=== PATIENT | female | born 1975 | race Caucasian/White ===

== ENCOUNTER 2023-07-16 01:04 | Inpatient (IN) | payer OTHER, SELFPAY ==
[2023-07-15 17:57] VITALS: BP 168/107
[2023-07-15 18:21] LABS: % Basophils 0.6 % (0-2); % Eosinophils 0.9 % (0-6); % Immature Granulocytes 0.2 % (0-0.5); % Lymphocytes 17.7 % (20.5-51.1); % Monocytes 10.9 % (1.7-9.3); % Neutrophils 69.7 % (42.2-75.2); Absolute Basophils 0.1 10^3/uL (0-0.2); Absolute Eosinophils 0.1 10^3/uL (0-0.7); Absolute Lymphocytes 2.1 10^3/uL (1.2-3.4); Absolute Monocytes 1.3 10^3/uL (0.1-0.6); Absolute Neutrophils 8.3 10^3/uL (1.4-6.5); Hemoglobin 13.2 g/dL (12.0-16.0); Mean Corp Hgb Conc. 34.7 g/dL (33.0-37.0); Mean Corpuscular Hgb 30.7 pg (27.0-31.0); Mean Corpuscular Volume 88.4 fL (81.0-99.0); Mean Platelet Volume 10.3 fL (7.4-10.4); Nucleated Red Blood Cells % 0 %; Platelet Count 353 10^3/uL (130-400); Red Cell Dist. Width 12.8 % (11.5-14.5)
[2023-07-15 18:47] LABS: ALT (SGPT) 13 U/L (0-35); AST (SGOT) 22 U/L (14-36); Albumin 4.2 g/dl (3.5-5.0); Alkaline Phosphatase 86 U/L (38-126); Blood Urea Nitrogen 13 mg/dl (7-17); Calcium 9.8 mg/dl (8.4-10.2); Carbon Dioxide 26 mmol/L (22-30); Chloride 102 mmol/L (98-107); Glucose 110 mg/dl (70-99); Potassium 4.1 mmol/L (3.5-5.1); Sodium 137 mmol/L (135-145); Total Bilirubin 0.5 mg/dl (0.2-1.3); eGFR > 60.00
[2023-07-15 18:49] LABS: HCG, Serum Qualitative Screen Negative
[2023-07-15 18:58] LABS: Troponin I < 0.012 ng/ml
[2023-07-15 19:02] LABS: Lipase 139 U/L (23-300)
--- NOTE | 2023-07-15 21:49 | ED.GENMED ---
History of Present Illness
<Nilam Carson PA-C - Last Filed: 07/16/23 00:41>
General
Chief Complaint: Abdominal Pain
Source: patient
Exam Limitations: none
Time Seen by Provider: 07/15/23 21:05
Nursing documentation reviewed up to this point in time: agreed with
Travel History
Have you had any contact with someone who has COVID-19?: No
Do you have any symptoms of coronavirus? Fever > 100 degrees, chills, cough, shortness of breath, sore throat, loss of taste or smell, muscle aches, or headache?: No
History of Present Illness
History of Present Illness:
Patient is a 48 year old female with hx HTN presenting for evaluation of left lower chest pain with radiation to left scapula and arm. Symptoms started on Tuesday evening and have been constant since. Pain is both exertional and pleuritic in nature.
Patient reports difficulty taking a deep breath. She does endorse some worsening in pain with movement. She states pain is better when lying flat. She denies any fever, shortness of breath, cough, abdominal pain, nausea, or urinary symptoms.
She has been taking ibuprofen for the pain which does lead to some improvement.
She denies any recent travel or recent surgery.
Past History
<Nilam Carson PA-C - Last Filed: 07/16/23 00:41>
Past History
ED Past Medical History: HTN, Other (Gastritis) and Other (Ovarian cyst)
ED Past Surgical History: and Other (Rhinoplasty)
Social History
Tobacco: Former smoker
Alcohol: Occasional
Personal:
Living: with family
Employment: Employed
Family History
Family History: Other (Noncontributory)
Phy Exam
<Nilam Carson PA-C - Last Filed: 07/16/23 00:41>
Physical Exam
Physical Exam:
General: Well appearing and non-toxic
Vitals: Mildly tachycardic, hypertensive, afebrile
HEENT: Atraumatic, normocephalic; pupils equal round reactive to light bilaterally, extraocular's intact, protecting airway
Neck: appears supple, no JVD
CV: Mildly tachycardic, heart sounds normal, no evidence of cyanosis; anterior chest wall without any reproducible pain
Resp: No evidence of respiratory distress, lungs clear no accessory muscle use
Abd: Soft, nontender, non-distended
Extremities: No deformities, no evidence of cyanosis or edema; DP pulses palpable and equal
Neuro: alert and oriented, speech normal, no focal neurologic deficits
Psych: Normal affect
Skin: Intact, no rashes
Course
<Nilam Carson PA-C - Last Filed: 07/16/23 00:41>
Orders/Labs/Results
Orders:
Orders
07/15/23 18:00
EKG [Electrocardiogram (*1)] Urgent
Reason for Study: Chest Pain
EKG- Treatment ONCE
Test Result ONCE
07/15/23 18:06
Complete Blood Count/With Diff Urgent
Comprehensive Metabolic Panel Urgent
HCG, Serum Qualitative Screen Urgent
Lipase Urgent
Troponin I Urgent
07/15/23 22:12
D-Dimer Urgent
07/15/23 22:29
Ibuprofen [Motrin] 400 mg PO NOW STA
07/15/23 22:36
CT Chest Pe Study Urgent
Comment:
Reason For Exam: pleuritic chest pain, elevated dimer
07/16/23 00:44
Admit/Transfer Patient As Directed
Co-Sign Provider:
Level of Care: Inpatient admission
Assign to:: Telemetry
Physician / Group: Gabriel
Diagnosis: Pericarditis
Reason for Telemetry: Chest Pain syndromes
Date to Stop Telemetry: 07/18/23
Time to Stop Telemetry: 11:00
Reason for Hospitalization: Pericarditis
Expected length of stay greater than two midnights?: Yes
ELOS- Estimated Length of Stay in days: 2
I certify the patient meets the requirements for IP care: Yes
07/16/23 00:45
Code Status As Directed
Resuscitation Status: Full Code
07/18/23 11:00
DC Protocol for Telemetry ONCE
Abnormal Lab Results
07/15/23 07/15/23
18:06 22:12
WBC 12.0 H 10^3/uL
(4.8-10.8)
Absolute Neuts (auto) 8.3 H 10^3/uL
(1.4-6.5)
Absolute Monos (auto) 1.3 H 10^3/uL
(0.1-0.6)
Lymphocytes % 17.7 L %
(20.5-51.1)
Monocytes % 10.9 H %
(1.7-9.3)
D-Dimer 1.12 H ug/mlFEU
(0.00-0.50)
Glucose 110 H mg/dl
(70-99)
07/15/23 18:06
07/15/23 18:06
Vital Signs
Initial and Last Documented VS:
Initial Vital Signs
Temp Pulse Resp BP Pulse Ox
98.8 F 101 18 168/107 98
07/15/23 17:57 07/15/23 17:57 07/15/23 17:57 07/15/23 17:57 07/15/23 17:57
Last Documented Vital Signs
Temp Pulse Resp BP Pulse Ox
98.8 F 93 21 131/92 98
07/15/23 17:57 07/16/23 00:34 07/16/23 00:34 07/16/23 00:00 07/16/23 00:34
<All Quintero, DO - Last Filed: 07/16/23 02:16>
Orders/Labs/Results
Orders:
Orders
07/15/23 18:00
EKG [Electrocardiogram (*1)] Urgent
Reason for Study: Chest Pain
EKG- Treatment ONCE
Test Result ONCE
07/15/23 18:06
Complete Blood Count/With Diff Urgent
Comprehensive Metabolic Panel Urgent
HCG, Serum Qualitative Screen Urgent
Lipase Urgent
Troponin I Urgent
07/15/23 22:12
D-Dimer Urgent
07/15/23 22:29
Ibuprofen [Motrin] 400 mg PO NOW STA
07/15/23 22:36
CT Chest Pe Study Urgent
Comment:
Reason For Exam: pleuritic chest pain, elevated dimer
07/16/23 00:44
Admit/Transfer Patient As Directed
Co-Sign Provider:
Level of Care: Inpatient admission
Assign to:: Telemetry
Physician / Group: Gabriel
Diagnosis: Pericarditis
Reason for Telemetry: Chest Pain syndromes
Date to Stop Telemetry: 07/18/23
Time to Stop Telemetry: 11:00
Reason for Hospitalization: Pericarditis
Expected length of stay greater than two midnights?: Yes
ELOS- Estimated Length of Stay in days: 2
I certify the patient meets the requirements for IP care: Yes
07/16/23 00:45
Code Status As Directed
Resuscitation Status: Full Code
07/18/23 11:00
DC Protocol for Telemetry ONCE
Abnormal Lab Results
07/15/23 07/15/23
18:06 22:12
WBC 12.0 H 10^3/uL
(4.8-10.8)
Absolute Neuts (auto) 8.3 H 10^3/uL
(1.4-6.5)
Absolute Monos (auto) 1.3 H 10^3/uL
(0.1-0.6)
Lymphocytes % 17.7 L %
(20.5-51.1)
Monocytes % 10.9 H %
(1.7-9.3)
D-Dimer 1.12 H ug/mlFEU
(0.00-0.50)
Glucose 110 H mg/dl
(70-99)
07/15/23 18:06
07/15/23 18:06
Vital Signs
Initial and Last Documented VS:
Initial Vital Signs
Temp Pulse Resp BP Pulse Ox
98.8 F 101 18 168/107 98
07/15/23 17:57 07/15/23 17:57 07/15/23 17:57 07/15/23 17:57 07/15/23 17:57
Last Documented Vital Signs
Temp Pulse Resp BP Pulse Ox
98.8 F 93 21 131/92 98
07/15/23 17:57 07/16/23 00:34 07/16/23 00:34 07/16/23 00:00 07/16/23 00:34
<Nilam Carson PA-C - Last Filed: 07/16/23 00:41>
MDM/Problems Addressed
Differential Diagnosis Includes:
Muscular strain, pneumonia, PE,
MDM/Problems Addressed:
Patient is 48-year-old female with history hypertension presenting for evaluation of left lower chest wall pain with radiation to left shoulder for the past 4 days. Symptoms are constant, made worse with movement, deep breaths, exertion. No
associated shortness of breath, fevers, nausea, vomiting. No recent travel or recent surgeries. Hemodynamically stable on arrival�mildly tachycardic and hypertensive. She is afebrile, not hypoxic. Physical exam as documented above. Heart rate
mildly tachycardic, lungs clear. Both chest pain and left scapular pain not reproducible on exam no signs of DVT on exam. Basic labs and EKG obtained in triage. CBC shows mild leukocytosis of 12 otherwise no clinically significant abnormalities.
CMP without any clinically significant abnormalities. Troponin negative. Lipase negative. negative. Given chest pain has been ongoing for the past 4 days�1 troponin is sufficient to rule out acute AR. EKG shows sinus tachycardia.
Will give ibuprofen for pain.
Given pleuritic nature of pain will check D-dimer. Will get chest x-ray.
D-dimer elevated to 1.1. Will proceed with CT chest and cancel x-ray. Patient states pain somewhat improved following ibuprofen.
CTA chest shows findings consistent with pericarditis and a small exudative left pleural effusion. Etiology of pericarditis and effusion unknown. Admit indicated. Will admit to hospitalist for further workup.
Chronic conditions affecting care:
Hypertension
Acute Exacerbation and/or Progression of Chronic Illness:
Pericarditis, pleural effusion
<Nilam Carson PA-C - Last Filed: 07/16/23 00:41>
*Radiology
Radiology exam reviewed: preliminary read by ED provider and radiology read reviewed
*Pulse Oximetry
Patient hypoxic: no
*EKG
Interpreted by ED Provider?: Yes
EKG Intrepretation Date: 07/16/23
Interpretation: abnormal
Comparison EKG: changes noted
Heart Rate: 102
Rate: tachycardiac
Rhythm: sinus
Brooks: normal axis
Interval: normal interval
QRS Pattern: normal QRS
Ischemia: non-specific ST changes
*Manager [employer] Director Interpretation
Rate: tachycardiac
Interpretation: abnormal
Heart Rate: 100
Rhythm: sinus
*Critical Care Note
Total Time (30-74mins, 75-104mins- exclusive of procedures): Not Applicable
ED Attending Note
<Nilam Carson PA-C - Last Filed: 07/16/23 00:41>
-
Portions of this chart may have been created with voice recognition software.� Occasional wrong word or��sound alike� substitutions may have occurred due to the inherent limitations of voice recognition software.
<All Quintero, DO - Last Filed: 07/16/23 02:16>
ED Attending Note
Patient seen and examined by attending physician: Yes
I performed a history and physical exam of patient and discussed management with resident, I reviewed resident's note and agree with documented findings and plan of care.: Yes
ED Attending Note:
I have reviewed and agree with history and treatment plan by Nilam Carson. My exam reveals 48-year-old female no acute distress, lungs clear, abdomen soft and nontender. Patient with myocarditis and pleural effusion. Admit to hospitalist.
Patient received ibuprofen in ED.
Discharge Plan
Departure
Patient Disposition: Admit
Date of Disposition: 07/16/23
Time of Disposition: 00:15
Presentation/result/management discussed w/ accepting MD/DO: Hospitalist
Discharge Problem:
Pericarditis, Pleural effusion
Interventions
Interventions:
*General Assessment Last Done: 07/15/23 17:57
ED- Fall Risk Assessment Last Done: 07/15/23 22:23
*ED COVID-19 Vaccine History Last Done: 07/15/23 17:57
GP-Fsqipj-Vtcwbycxqf Assessment Last Done: 07/15/23 22:23
[2023-07-15 22:03] VITALS: BP 129/87
[2023-07-15 22:31] LABS: D-Dimer 1.12 ug/mlFEU (0.00-0.50)
[2023-07-15] MEDS: MOTRIN 400 MG PO (22:37)
[2023-07-15 23:00] VITALS: BP 140/91
[2023-07-15 23:21] VITALS: BP 142/93
[2023-07-16] VITALS: BP 131/92
--- NOTE | 2023-07-16 00:50 | HPS.HSE ---
Family Physician
-
Family Physician: Van Aleman
Chief Complaint
-
Chest Pain
History of Present Illness
Patient is a 48y F with PMH significant for hypertension who presents to ED complaining of left-sided chest pain. Patient states that her pain began on Tuesday in the L lower chest. Pain persisted and increased over the next 2 days - increasing
to include the L upper chest. neck and LUE. Patent noted pain with deep breathing and certain movements. She had temp at home to 99.5 degrees. No other current or recent symptoms including cough, sore throat, N/V/D, etc. Patient denies any prior
history of similar symptoms.
Patient states that she has been taking ibuprofen at home with temporary improvement in her pain.
Medical History
Past Medical History
Past Medical History: Reports Other
Additional Past Medical History:
Hypertension
Past Surgical History: Reports Other
Additional Past Surgical History:
Rhinoplasty
Social History
Tobacco: Former Smoker (Quit smoking several years ago. )
Alcohol: Occasional
Drug: None
Family History
Family History: Other (Father: CAD, CVA)
Allergies / Home Medications
Allergies reflects when Allergies were last updated in [facility].
Home Medications with original date entered in [facility]
Allergy/Medication List:
Allergies
Allergy/AdvReac Type Severity Reaction Status Date / Time
No Known Allergies Allergy Verified 07/15/23 17:59
Home Medications
amlodipine 5 mg tablet 5 mg PO DAILY 07/15/23
cholecalciferol (vitamin D3) 25 mcg (1,000 unit) tablet (Vitamin D3) 25 mcg PO DAILY 07/15/23
Review of Systems
-
History Source: Patient
A 12 point ROS was completed and negative except as noted: Yes
Constitutional: Denies Fever, Fatigue or Chills
EENT: Denies Sore Throat
Respiratory: Denies Cough or Trouble Breathing
Cardiac: Reports Chest Pain; Denies Diaphoresis, Palpitations or Syncope
Abdomen/GI: Denies Abdominal Pain, Nausea, Vomiting or Diarrhea
: Denies Dysuria or Flank Pain
Musculoskeletal: Denies Joint Pain or Edema
Neurological: Denies Dizzy or Headache
Psych: Denies Depression or Anxiety
Physical Exam
Vital Signs
Vital Signs
Temp Pulse Resp BP Pulse Ox
98.8 F 93 21 131/92 98
07/15/23 17:57 07/16/23 00:34 07/16/23 00:34 07/16/23 00:00 07/16/23 00:34
Physical Exam
General: Other (48y F in no acute distress.)
HEENT: Moist mucous membranes and PERRLA
Respiratory: Clear; No Wheezes, Rales or Rhonchi
Cardiac: S1/S2, Regular Rhythm and Murmur (II/ BASSAM)
GI: Soft, Non Tender, Non Distended and Normal Bowel Sounds
Musculoskeletal: No Clubbing, No Cyanosis and No Edema
Neuro: AO x 3
Laboratory Results
-
07/15/23 18:06
07/15/23 18:06
Laboratory Results
Total Bilirubin 0.5 mg/dl (0.2-1.3) 07/15/23 18:06
AST 22 U/L (14-36) 07/15/23 18:06
ALT 13 U/L (0-35) 07/15/23 18:06
Alkaline Phosphatase 86 U/L (38-126) 07/15/23 18:06
Troponin I < 0.012 ng/ml 07/15/23 18:06
Lipase 139 U/L (23-300) 07/15/23 18:06
Impression/Plan
-
A/P: Patient is a 48y F with PMH significant for hypertension who presents to ED complaining of L sided chest pain.
Pericarditis / Pleurisy
- Admit for further evaluation and treatment.
- Clinical symptoms and imaging results are c/w pericarditis +/- pleurisy on the L.
- Likely a viral trigger.
- Supportive care including standing dosing of NSAIDs for inflammation / pain control.
- Echo in AM.
- Cardiology evaluation for additional recommendations.
- Follow for continued clinical improvement.
- Follow-up additional serologies, cultures, etc.
Benign Hypertension
- Stable. Continue amlodipine with holding parameters.
DVT Prophylaxis: SCDs
Code Status: Full
[2023-07-16 02:34] VITALS: BP 128/79; BMI 21.0
[2023-07-16 03:25] LABS: Hematocrit 38.2 % (37.0-47.0); Hemoglobin 13.3 g/dL (12.0-16.0); Mean Corp Hgb Conc. 34.8 g/dL (33.0-37.0); Mean Corpuscular Hgb 30.2 pg (27.0-31.0); Mean Corpuscular Volume 86.6 fL (81.0-99.0); Mean Platelet Volume 10.2 fL (7.4-10.4); Platelet Count 339 10^3/uL (130-400); Red Blood Cell Count 4.41 10^6/uL (4.20-5.40); Red Cell Dist. Width 12.6 % (11.5-14.5); White Blood Cell Count 9.9 10^3/uL (4.8-10.8)
[2023-07-16 03:33] LABS: Erythrocyte Sed Rate 50 mm/hour (0-20)
[2023-07-16 03:42] LABS: Blood Urea Nitrogen 7 mg/dl (7-17); Calcium 9.3 mg/dl (8.4-10.2); Carbon Dioxide 23 mmol/L (22-30); Chloride 106 mmol/L (98-107); Estimated Creatinine Clearance 81 ml/min; Glucose 92 mg/dl (70-99); Potassium 3.7 mmol/L (3.5-5.1); Sodium 138 mmol/L (135-145); Uric Acid 2.6 mg/dl (2.5-6.2); eGFR > 60.00
[2023-07-16 03:53] LABS: Troponin I < 0.012 ng/ml
[2023-07-16 04:16] LABS: TSH Reflex To Free T4 1.53 uIU/ml (0.47-4.68)
[2023-07-16 04:28] VITALS: BMI 21.0
[2023-07-16 07:00] VITALS: BP 177/110
--- NOTE | 2023-07-16 07:36 | W.PN.HOSP.TC ---
Addendum entered and electronically signed by Gerald Flores MD 07/16/23 15:48:
Troponin wnl x4, no significant chest pain at this time
Colchicine dose reduced to daily as oppose to BID due to wt<70 kg
Patient otherwise medically stable for discharge home with outpatient follow up recommendations.
Original Note:
Today's Communication/Plan
-
Likely discharge home today if most recent pending troponin lvl notes no significant change
Assessment / Plan
Assessment / Plan
Physical Exam
General: No acute distress
HEENT: Moist mucous membranes and PERRLA
Respiratory: Clear; No Wheezes, Rales or Rhonchi
Cardiac: S1/S2, Regular Rhythm and Murmur (II/ BASSAM)
GI: Soft, Non Tender, Non Distended and Normal Bowel Sounds
Musculoskeletal: No Clubbing, No Cyanosis and No Edema
Neuro: AO x 3
A/P:� Patient is a 48y F with PMH significant for hypertension who presents to ED complaining of L sided chest pain pericarditis as noted on CT chest.
Pericarditis / Pleurisy
�- Clinical symptoms and imaging results are c/w pericarditis +/- pleurisy on the L.
�- Supportive care including standing dosing of NSAIDs for inflammation / pain control.
�- Cardiology eval with ECHO appreciated no acute abn's, stable for discharge on NSAID 14 days and Colchicine 3 mo
Benign Hypertension
�- Stable.� Continue amlodipine with holding parameters.
DVT Prophylaxis:� SCDs
Code Status:� Full
Pending recent troponin level, if remains wnl, patient medically stable for discharge home with outpatient follow up recommendations.
discussed with patient, her , cardiology, and nurse
Total Time Preparing Discharge __45 minutes including examination of the patient, summary of the hospital stay, instructions for continuing care to all relevant caregivers; and preparation of discharge records, prescriptions, and referral
forms if necessary.
Anticipated Discharge: Today
Subjective/Interval History
-
Date of Service: July 16, 2023
reports significant improvement in overall symptoms. denies any new acute issues. Eager to go home. and daughter present during evaluation.
Objective Data
-
Labs:
Laboratory Results
07/16/23 07/16/23
03:16 03:17
WBC 9.9
Hgb 13.3
Hct 38.2
Plt Count 339
Sodium 138
Potassium 3.7
Chloride 106
Carbon Dioxide 23
BUN 7
Creatinine 0.4 L
Glucose 92
Calcium 9.3
Vital Signs:
Vital Signs
Temp Pulse Resp BP Pulse Ox
98.4 F 78 17 128/79 98
07/16/23 02:34 07/16/23 02:34 07/16/23 02:34 07/16/23 02:34 07/16/23 02:34
--- NOTE | 2023-07-16 09:15 | CON.CAR ---
Addendum entered and electronically signed by Xavier Alcaraz MD 07/16/23 15:46:
I saw and examined the patient.
The VULCAN CREWMEMBER's note was reviewed and I agree with the note.
Comment: No cardiac rub. Symptoms are much better. Echo is normal and did not aprreciate the CT findings of:
1.� New mild diffuse pericardial thickening suspicious for ACUTE PERICARDITIS.
2. � SMALL LEFT PLEURAL EFFUSION.
3. � Mild subsegmental atelectasis in the basilar segments of the lower lobes of both lungs (left greater than right).
4. � No CTA evidence for acute central pulmonary arterial embolus.
He symptoms overall are c/w pericarditis.
I favor 14 days of NSAIDS and 3 months of colchicine 0.6 mg BID
OK for home and f/u with PCP and can see me in 3-4 months if she wishes.
No signs or symptoms of connective tissue disease, malignancy or infection to suggest this episode of presumed pericarditis is secondary to underlying disease process at this time.
Original Note:
Consultation
Consultation Request
Date/Time Consultation Requested: 07/16/23 2:30a
Date/Time Consultation Performed: 07/16/23 8:30a
Requesting Provider: Dr. Rios
Performing Provider: GREGG Telles for Dr. Alcaraz
Reason for Consultation: chest pain
Medical History
-
Chief Complaint: chest pain
History of Present Illness:
Mrs. Avalos is a 48 yo female with HTN, who presents to the ER with c/o left sided chest pain that began on Tuesday last week. She describes the pain as a mild soreness, began under left breast then radiated up to upper chest, left neck and arm.
Pain is worse with movement and deep inspiration and improves after taking Ibuprofen. There are no associated cardiac symptoms. She states having a mild fever for several days this week as well. She is admitted to the hospitalist service and we
are consulted for chest pain. She states seeing a temple marker Dr. Ryan in [facility] about 10 years ago for fluttering feeling and was told she had an arrhythmia (unknown kind). Currently she had mild left chest soreness. Chest CT
with new mild diffuse pericardial thickening suspicious for acute pericarditis, small left pleural effusion.
Past Medical History
Past Medical History: HTN
Past Surgical History: and Other (rhinoplasty)
Social History
Tobacco: Former Smoker (smoked 1/2 ppd for 25 years, quit 10 years ago)
Alcohol: Occasional (has 3-4 drinks on Tuesday and Tuesday)
Personal:
Living: With Family
Employment: Employed
Family History
Family History: Reviewed & Not Pertinent
Allergies / Home Medications
Allergy/AdvReac Type Severity Reaction Status Date / Time
No Known Allergies Allergy Verified 07/15/23 17:59
Medication Instructions Recorded Confirmed Type
amlodipine 5 mg tablet 5 mg PO DAILY 07/15/23 07/15/23 History
cholecalciferol (vitamin D3) 25 25 mcg PO DAILY 07/15/23 07/15/23 History
mcg (1,000 unit) tablet (Vitamin
D3)
Review of Systems
-
History Source: Patient
All other systems: Negative unless noted
Physical Exam
Vital Signs
Temp Pulse Resp BP Pulse Ox
98.7 F 105 17 177/110 99
07/16/23 07:00 07/16/23 07:00 07/16/23 07:00 07/16/23 07:00 07/16/23 07:00
Lab Results
07/16/23 03:17
07/16/23 03:16
Troponin I < 0.012 ng/ml 07/16/23 03:17
Physical Exam
General: Well Developed, Well Nourished and No Apparent Distress
HEENT: Normocephalic, Anicteric and Moist Mucous Membranes
Respiratory: Clear and Non Labored Respirations
Cardiac: S1/S2 and Regular Rhythm
Breast: Deferred by me
GI: Soft, Non Tender, Non Distended and Normal Bowel Sounds
Rectal: Deferred by Provider
Genito-urinary: No Costovertebral Tender
Musculoskeletal: No Clubbing, No Cyanosis and No Edema
Skin: Warm and Dry
Neuro: AO x 3
Hematologic/Lymphatic: No Lymphadenopathy
Psych: Calm
Impression / Plan
-
Chest pain - CT chest suspicious for acute pericarditis.
- continue Ibuprofen, will add colchicine 0.6mg BID.
- check echo today.
- idiopathic vs viral.
- troponin < 0.012 x 2, EKG with non specific changes.
HTN - continue Norvasc.
- monitor.
Data Reviewed
-
EKG: Tracing Personally Visualized and interpreted (sinus tach 102 bpm, nonspecific T wave abn)
CT Scan: Report Reviewed by me (chest CT: new mild diffuse pericardial thickening suspicious for acute pericarditis, small left pleural effusion.)
Labs: Labs Reviewed by me
Old Records: Reviewed
[2023-07-16 09:40] LABS: Troponin I 0.012 ng/ml
[2023-07-16] MEDS: MOTRIN 800 MG PO ×2 (09:45→16:34)
[2023-07-16] MEDS: PROTONIX 40 MG PO (09:45)
[2023-07-16] MEDS: NORVASC 5 MG PO (09:45)
[2023-07-16 11:00] VITALS: BP 128/78
--- NOTE | 2023-07-16 13:32 | CM ---
CM following re: discharge planning.
Reviewed pt's chart, met6 with pt and pt's at bedside.
Pt is a 48 year old female, admitted with primary dx of Chest Pain.
Pt reports she was born and grew up in [place] [facility], [place] [place] 1989 and resided with family in [facility] Pt reports she lives with in a 2SH, 2 steps to enter, has 2 supportive children. Pt described herself as independent
in all areas [employer]RARIAN, drives, works. No DME, VN or SNF history.
PCP: Van Robles
Pharmacy: [facility]
D/C plan: home with anticipated no needs. to transport at discharge.
CM will follow with discharge plan updates as hospitalization progresses
[2023-07-16 15:00] VITALS: BP 118/89
[2023-07-16 15:32] LABS: Troponin I 0.024 ng/ml
[2023-07-16] MEDS: COLCHICINE 0.599999999999999978 MG PO (16:34)
--- NOTE | 2023-07-29 11:28 | W.DCSUMMARY ---
Discharge Summary
Discharge Data
Date of Admission: 07/16/23
Date of Discharge: 07/16/23
-
Pending Results: No
Hospital Course
48F hx HTN p/w L sided chest pain pericarditis as noted on CT chest. Supportive care including standing dosing of NSAIDs for inflammation / pain control were started. Cardiology evaluated with ECHO appreciated no acute abn's, stable for discharge
on NSAID 14 days and Colchicine 3 mo. Troponin wnl x4, significant improvement in overall symptoms later in the day. Medically stable, patient was discharged home with outpatient follow up recommendations.
Discharge Plan
-
Patient Disposition: Home (Routine Discharge)
Discharge Diagnosis/Procedures: Pericarditis
Condition: Good
Diet: Regular
Activity: As tolerated
Driving Restrictions: As prior to admission
Bathing Restrictions: None
Activity Restrictions/Additional Instructions:
Please follow up with primary care provider in 1 week of discharge and Cardiology in 3-4 months of discharge.
Ibuprofen 14 days and colchicine 3 months have been prescribed for treatment pericarditis.
Protonix has been prescribed as stress ulcer prophylaxis while on high dose ibuprofen 14 days as above. Ok to discontinue when 14 days ibuprofen completes.
Please take medications as prescribed/recommended and follow up with primary care provider and/or other healthcare provider involved in your care for refills and/or further adjustment to your medication regimen as necessary.
Instructions: Pericarditis, Adult (DC)
Referrals:
Van Aleman MD [Family Provider] - in one week
Xavier Alcaraz MD [Active] - (In 3 to 4 months of discharge. )
Prescriptions:
New
ibuprofen 800 mg Tablet
800 mg PO TID 14 Days Qty: 42 0RF
pantoprazole 40 mg Tablet,Delayed Release (Dr/Ec)
40 mg PO DAILY 14 Days Qty: 14 0RF
Rx Instructions:
stress ulcer prophylaxis while on high dose ibuprofen for 14 days
colchicine 0.6 mg tablet
0.6 mg PO DAILY 90 Days Qty: 90 0RF
Continued
cholecalciferol (vitamin D3) [Vitamin D3] 25 mcg (1,000 unit) Tablet
25 mcg PO DAILY
amlodipine 5 MG tablet
5 mg PO DAILY
Discharge Orders:
Discharge Patient (As Directed); Ordered 07/16/23
Ordered By: Gerald Flores
Discharge Date and Time
Discharge Date/Time: 07/16/23 17:26
== END 2023-07-16 17:26 | disposition home or self-care (01) | DRG 315 ==
LOC: 3 WEST ACU 01:04
PROVIDERS: Emergency Medicine; Physician Assistant; ADMITTING PHYSICIAN Hospitalist; ATTENDING PHYSICIAN Internal Medicine; CONSULT PHYSICIAN Internal Medicine Cardiovascular Disease; EMERGENCY PHYSICIAN Emergency Medicine; FAMILY PHYSICIAN Internal Medicine
DX: I31.9 Disease of pericardium, unspecified (principal); J90 Pleural effusion, not elsewhere classified; J98.11 Atelectasis; Z87.891 Personal history of nicotine dependence; I51.4 Myocarditis, unspecified; I10 Essential (primary) hypertension
CPT/HCPCS: 71275; 80048; 80053; 83690; 84443; 84484; 84550; 84703; 85025; 85027; 85379; 85652; 86140; 87040; 93005; 93306; 99285; Q9967